=== PATIENT | male | born 1995 | race Caucasian/White ===

== ENCOUNTER 2020-02-19 20:50 | Emergency (ER) | payer SELFPAY ==
[~2020-02-19] VITALS: Ht 177.8 cm; Wt 79.5 kg
[2020-02-19 20:54] VITALS: BP 141/96; TEMP 97.8
[2020-02-19 21:31] VITALS: PULSE 90
== END 2020-02-19 21:32 | disposition home or self-care (01) ==
LOC: COL.ER 20:50
DX: Z20.2 Contact with and (suspected) exposure to infections with a predominantly sexual mode of transmission (principal)
CPT/HCPCS: J0696

== ENCOUNTER 2020-08-22 23:32 | Emergency (ER) | payer MEDICAID ==
[~2020-08-22] VITALS: Ht 177.8 cm; Wt 79.5 kg
[2020-08-23 00:27] LABS: COLLECTION METHOD CLEAN CATCH
[2020-08-23 00:49] LABS: PH 5 (5-8); SQUAMOUS EPITHELIAL 0-2 /hpf; URINE APPEARANCE Clear; URINE BACTERIA Rare /hpf; URINE BILIRUBIN Negative (NEGATIVE); URINE BLOOD Negative (NEGATIVE); URINE COLOR Yellow; URINE GLUCOSE Negative (NEGATIVE); URINE KETONE Negative (NEGATIVE); URINE LEUKOCYTE ESTERASE Trace (NEGATIVE); URINE NITRATE Negative (NEGATIVE); URINE PROTEIN(semi-quant) Negative (NEGATIVE); URINE RBC 0-2 /hpf; URINE UROBILINOGEN Negative (NEGATIVE)
[2020-08-23] MEDS ORDERED: ZITHROMAX 250M250 MG PO (00:54)
[2020-08-23 01:07] VITALS: BP 127/88; PULSE 82; TEMP 98.1
== END 2020-08-23 01:07 | disposition home or self-care (01) ==
LOC: COL.ER 23:32
PROVIDERS: Nurse Practitioner Primary Care
DX: N34.2 Other urethritis (principal)
CPT/HCPCS: J0696

== ENCOUNTER 2021-03-18 22:29 | Emergency (ER) | payer MEDICAID ==
[~2021-03-18] VITALS: Ht 177.8 cm; Wt 84.1 kg
[~2021-03-18 22:29] MED LIST: ZITHROMAX 250M250 MG PO
[2021-03-18 22:37] VITALS: TEMP 98
[2021-03-18 23:05] LABS: STREP SCREEN NEGATIVE
[2021-03-18 23:31] VITALS: BP 132/83; PULSE 86
== END 2021-03-18 23:31 | disposition home or self-care (01) ==
LOC: COL.ER 22:29
PROVIDERS: Personal Emergency Response Attendant
DX: J02.8 Acute pharyngitis due to other specified organisms (principal)

== ENCOUNTER 2021-07-23 00:30 | Emergency (ER) | payer MEDICAID ==
[~2021-07-23] VITALS: Ht 177.8 cm; Wt 86.4 kg
[2021-07-23 00:36] VITALS: TEMP 98.3
[2021-07-23] MEDS ORDERED: AMOXICILLIN 8751 TAB PO (00:47)
[2021-07-23 00:55] VITALS: BP 144/92; PULSE 67
== END 2021-07-23 01:07 | disposition home or self-care (01) ==
LOC: COL.ER 00:30
DX: S01.511A Laceration without foreign body of lip, initial encounter (principal); W55.01XA Bitten by cat, initial encounter